=== PATIENT | female | born 2000 | race Caucasian/White ===

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

== ENCOUNTER 2020-02-14 22:18 | Emergency (ER) | payer BC ==
[~2020-02-14] VITALS: Ht 157.5 cm; Wt 54.1 kg
[2020-02-14 23:03] LABS: BASOPHILS # (AUTO) 0.04 x10^3/uL (0-0.3); BASOPHILS % (AUTO) 1 % (0-1); EOSINOPHILS # (AUTO) 0.18 x10^3/uL (0-0.8); EOSINOPHILS % (AUTO) 2 % (1-7); LYMPHOCYTES # (AUTO) 1.35 x10^3/uL (1-6.1); LYMPHOCYTES % (AUTO) 17 % (22-44); MD NO; MEAN CORPUSCULAR HEMOGLOBIN 30.6 pg (27.0-34.8); MEAN CORPUSCULAR HGB CONC 33.5 g/dL (32.4-35.8); MEAN CORPUSCULAR VOLUME 91.2 fL (80-100); MEAN PLATELET VOLUME 8.3 fL (7.4-10.4); MONOCYTES # (AUTO) 0.38 x10^3/uL (0-1.4); MONOCYTES % (AUTO) 5 % (2-9); NEUTROPHILS # (AUTO) 6.17 x10^3/uL (1.8-8.0); NEUTROPHILS % (AUTO) 76 % (42-75); PLATELET COUNT 333 x10^3/uL (130-400); RED BLOOD COUNT 4.41 x10^6/uL (3.82-5.3); RED CELL DISTRIBUTION WIDTH 12.9 % (9.6-15.2)
[2020-02-14 23:13] LABS: ALANINE AMINOTRANSFERASE 17 U/L (12-78); ALBUMIN 4.2 g/dL (3.4-5.0); ANION GAP 6 mmol/L (5-15); CALCIUM 9.1 mg/dL (8.5-10.1); CHLORIDE 108 mmol/L (98-107); CREATININE 0.66 mg/dL (0.55-1.02)
--- NOTE | 2020-02-14 23:20 | NUR ---
PT HAS BEEN AMBULATORY TO BATHROOM WITH STEADY GAIT FOR UA. ERP HAS BEEN TO BEDSIDE. PT UPDATED ON POC. CURRENTLY RESTING IN BED, NO SIGNS OF ACUTE DISTRESS, RESPIRATIONS EVEN AND UNLABORED. CALL LIGHT WITHIN REACH. PT IS CURRENTLY ON HER PHONE. VISITOR AT BEDSIDE.
[2020-02-14 23:30] LABS: MICROSCOPIC NOT IND
[2020-02-14 23:30] LABS: ALKALINE PHOSPHATASE 56 U/L (45-117); BILIRUBIN,TOTAL 0.4 mg/dL (0.2-1.0)
--- NOTE | 2020-02-14 23:38 | NUR ---
CALLED US, NO ANSWER. CHARGE NURSE AND ERP MADE AWARE.
--- NOTE | 2020-02-14 23:48 | NUR ---
PT TO IMAGING.
--- NOTE | 2020-02-15 01:26 | NUR ---
PT LAYING IN BED, NO SIGNS OF DISTRESS, DENIES PAIN. PT UPDATED ON POC. RAILROAD INSPECTOR OBGYN HAS BEEN PAGED X2, AWAITING CONSULT.
[2020-02-15 01:58] VITALS: BP 101/57
== END 2020-02-15 02:21 | disposition home or self-care (01) ==
LOC: ED 23:41
DX: O20.0 Threatened abortion (principal); N92.4 Excessive bleeding in the premenopausal period; Z3A.01 Less than 8 weeks gestation of pregnancy
CPT/HCPCS: 36415; 76801; 80053; 81003; 84702; 85025; 86901; 99284

== ENCOUNTER 2020-02-23 10:19 | Day surgery (SDC) | payer BC ==
[~2020-02-23] VITALS: Ht 157.5 cm; Wt 52.8 kg
[2020-02-23] MEDS ORDERED: LACTATED RINGERS 1,000 ML IV SCH (10:46)
[2020-02-23 10:47] VITALS: BP 117/77
[2020-02-23] MEDS ORDERED: CHLORHEXIDINE 15 ML UDC ONE (10:52)
[2020-02-23] MEDS ORDERED: LIDOCAINE-MPF 1%, 2ML ONE (10:52)
[2020-02-23] MEDS ORDERED: ONDANSETRON 2MG/ML, 2ML IVPush ONE (11:00)
[2020-02-23] MEDS ORDERED: PLEASE ENTER HEIGHT AND WEIGHT MC SCH (11:00)
[2020-02-23] MEDS ORDERED: CHLORHEXIDINE 15 ML UDC MM ONE (11:00)
[2020-02-23] MEDS ORDERED: DIAZEPAM 5 MG TABLET PO ONE (11:00)
[2020-02-23] MEDS ORDERED: ACETAMINOPHEN 500 MG TABLET PO ONE (11:00)
[2020-02-23] MEDS ORDERED: ONDANSETRON 2MG/ML, 2ML ONE ×3 (11:03→12:14)
[2020-02-23] MEDS ORDERED: MISOPROSTOL 200 MCG TABLET ONE (11:27)
[2020-02-23] MEDS ORDERED: SILVER NITRATE STICK TP ONE (11:27)
[2020-02-23] MEDS ORDERED: OXYTOCIN 10 UNITS/ML, 1ML ONE (11:27)
[2020-02-23] MEDS ORDERED: METHYLERGONOVINE 0.2 MG/ML IM ONE (11:27)
[2020-02-23] MEDS ORDERED: FENTANYL PF 100 MCG/2ML ONE ×4 (11:31→15:38)
[2020-02-23] MEDS ORDERED: MIDAZOLAM 1 MG/ML, 2ML ONE ×2 (11:34→14:41)
[2020-02-23] MEDS ORDERED: PHENYLEPHRINE 10 MG/ML ONE (11:57)
[2020-02-23] MEDS ORDERED: CEFAZOLIN 1,000 MG ONE (11:57)
[2020-02-23] MEDS ORDERED: ACETAMINOPHEN 325 MG TABLET PO PRN (12:00)
[2020-02-23] MEDS ORDERED: MEPERIDINE/PF 25MG/0.5ML IVPush PRN (12:00)
[2020-02-23] MEDS ORDERED: PROMETHAZINE 25 MG/ML, 1ML IVPush PRN (12:00)
[2020-02-23] MEDS ORDERED: MIDAZOLAM 1 MG/ML, 2ML IV PRN (12:00)
[2020-02-23] MEDS ORDERED: DIPHENHYDRAMINE 50 MG/ML, 1ML IVPush PRN (12:00)
[2020-02-23] MEDS ORDERED: EPHEDRINE 50 MG/ML, 1ML IVPush PRN (12:00)
[2020-02-23] MEDS ORDERED: PROMETHAZINE 12.5 MG SUPP PR PRN (12:00)
[2020-02-23] MEDS ORDERED: DIAZEPAM 5 MG/ML, 2ML IVPush PRN (12:00)
[2020-02-23] MEDS ORDERED: ONDANSETRON 2MG/ML, 2ML IVPush PRN (12:00)
[2020-02-23] MEDS ORDERED: OXYcodone 5 MG/5 ML ORAL.SOL UDC PO PRN (12:00)
[2020-02-23] MEDS ORDERED: ALBUTEROL SULFATE 2.5 MG/3 ML NPPB PRN (12:00)
[2020-02-23] MEDS ORDERED: HYDROmorphone 1 MG/ML, 1ML INJ IVPush PRN (12:00)
[2020-02-23] MEDS ORDERED: hydrALAzine 20 MG/ML, 1ML IV PRN (12:00)
[2020-02-23] MEDS ORDERED: LABETALOL 5MG/ML, 20ML IV PRN (12:00)
[2020-02-23] MEDS ORDERED: DEXAMETHASONE 4 MG/ML, 1ML ONE ×2 (12:14)
[2020-02-23] MEDS ORDERED: BUPIVACAINE/PF-EPI 0.25% 1:200K ONE (12:58)
[2020-02-23] MEDS ORDERED: ROPIvacaine/PF 0.2%, 20 ML ONE (13:23)
[2020-02-23] MEDS ORDERED: SUGAMMADEX 200 MG/2 ML IVPush ONE (13:55)
[2020-02-23] MEDS ORDERED: ROCURONIUM 10MG/ML,5ML ONE (13:56)
[2020-02-23] MEDS ORDERED: PROPOFOL 10 MG/ML, 20ML ONE (13:56)
[2020-02-23] MEDS ORDERED: SUCCINYLCHOLINE 20 MG/ML, 10ML ONE (13:56)
[2020-02-23] MEDS ORDERED: OXYcodone 5 MG/5 ML ORAL.SOL UDC ONE (14:32)
[2020-02-23] MEDS ORDERED: MEPERIDINE/PF 25MG/ML,1ML ONE (14:32)
[2020-02-23] MEDS: FENTANYL PF 100 MCG/2ML IV PRN ×2 (14:35→14:48)
[2020-02-23] MEDS ORDERED: OXYcodone/APAP 5/325MG TABLET PO PRN (18:00)
[2020-02-23] MEDS ORDERED: OXYcodone/APAP 5/325MG TABLET ONE ×2 (18:01→18:11)
== END 2020-02-23 18:40 | disposition home or self-care (01) ==
LOC: OUT 10:19
PROVIDERS: ATTEND Obstetrics & Gynecology
DX: O03.4 Incomplete spontaneous abortion without complication (principal); Z20.828 Contact with and (suspected) exposure to other viral communicable diseases; Z80.41 Family history of malignant neoplasm of ovary
CPT/HCPCS: 36415; 59100; 59812; 64488; 74018; 87635; 88305; C1765; J0330; J0690; J1100; J2175; J2210; J2250; J2370; J2405; J2590; J2704; J2795; J3010; J7120